=== PATIENT | female | born 1990 | race Caucasian/White ===

== ENCOUNTER 2018-08-16 18:17 | Outpatient (CLI) | payer MEDICAID | END 2018-08-16 22:30 | disposition home or self-care (01) | LOC: OBT 18:17 → L-D 18:19 → OBT 22:30 | DX: O24.410 Gestational diabetes mellitus in pregnancy, diet controlled (principal); Z3A.35 35 weeks gestation of pregnancy | CPT/HCPCS: 76815; 76818; 82962 ==

== ENCOUNTER 2018-09-13 17:43 | Inpatient (IN) | payer MEDICAID ==
[2018-09-13 18:46] LABS: ADD MAN DIFF? NO
[2018-09-13 18:50] LABS: BASOPHILS % 0.2 % (0.0-2.0); EOSINOPHILS # 0.2 10^3/ul (0.0-0.5); HEMATOCRIT 38.6 % (37.0-47.0); HEMOGLOBIN 13.3 g/dl (12.0-16.0); LYMPHOCYTES # 2.1 10^3/ul (0.8-2.9); LYMPHOCYTES % 18.2 % (15.0-51.0); MEAN CORPUSCULAR HGB CONC 34.5 g/dl (32.0-37.0); MEAN CORPUSCULAR VOLUME 86.9 fl (82.0-101.0); MEAN PLATELET VOLUME 10.9 fl (7.4-10.4); MONOCYTE # 1.1 10^3/ul (0.3-0.9); MONOCYTES % 9.7 % (0.0-11.0); NEUTROPHIL # 7.8 10^3/ul (1.6-7.5); NEUTROPHILS % 69.5 % (39.0-77.0); PLATELET COUNT 196 10^3/UL (140-415); RED BLOOD COUNT 4.44 10^6/ul (4.20-5.40); RED CELL DISTRIBUTION WIDTH 13.8 % (11.5-14.5)
[2018-09-13 18:50] LABS: WHITE BLOOD COUNT 11.3 10^3/ul (4.8-10.8)
[2018-09-13 19:01] LABS: ADD UMIC NO; UR ASCORBIC ACID NEGATIVE (NEGATIVE); UR BACTERIA FEW /HPF (NONE SEEN); UR BILIRUBIN (Dip) NEGATIVE (NEGATIVE); UR BLOOD (Dip) NEGATIVE (NEGATIVE); UR CLARITY SLIGHTLY CLOUDY (CLEAR); UR COLOR YELLOW (YELLOW); UR GLUCOSE (Dip) NEGATIVE (NEGATIVE); UR KETONES (Dip) TRACE mg/dL (NEGATIVE); UR LEUKOCYTE ESTERASE (Dip) NEGATIVE Leu/ul (NEGATIVE); UR MUCUS FEW /HPF (NONE SEEN); UR NITRITE (Dip) NEGATIVE (NEGATIVE); UR RBC 1 /HPF (0-5); UR SPECIFIC GRAVITY (Dip) 1.019 (1.003-1.030); UR SQUAMOUS EPITHELIAL CELL FEW /HPF (FEW); UR TOTAL PROTEIN (Dip) NEGATIVE (NEGATIVE); UR UROBILINOGEN (Dip) NEGATIVE (NEGATIVE); UR WBC 1 /HPF (0-5)
[2018-09-13 19:12] LABS: INR 0.89; PARTIAL THROMBOPLASTIN TIME 25.6 Sec (23.0-35.0); PROTIME 12.2 Sec (11.9-14.9)
[2018-09-13 19:13] LABS: ALANINE AMINOTRANSFERASE 12 IU/L (13-69); ALBUMIN 3.5 g/dl (3.3-4.9); ALKALINE PHOSPHATASE 181 IU/L (42-121); ANION GAP 11 (5-13); ASPARTATE AMINO TRANSFERASE 14 IU/L (15-46); BILIRUBIN,INDIRECT 0.1 mg/dl (0-1.1); BILIRUBIN,TOTAL 0.1 mg/dl (0.2-1.3); BLOOD UREA NITROGEN 6 mg/dl (7-20); CALCIUM 10.3 mg/dl (8.4-10.2); CARBON DIOXIDE 19 mmol/L (21-31); CHLORIDE 109 mmol/L (97-110); CREATININE 0.44 mg/dl (0.44-1.00); Estimated GFR > 60 mL/min (>60); GLUCOSE 115 mg/dl (70-220); POTASSIUM 3.8 mmol/L (3.5-5.1); SODIUM 139 mmol/L (135-144); URIC ACID 3.8 mg/dl (3.1-7.9)
[2018-09-13] MEDS ORDERED: CARBOPROST 250 MCG INJ IM (21:00)
[2018-09-13] MEDS ORDERED: IBUPROFEN 600 MG TAB PO (21:00)
[2018-09-13] MEDS ORDERED: BUTORPHANOL 2 MG INJ IV ×2 (21:00)
[2018-09-13] MEDS ORDERED: LIDOCAINE 1% (MPF) 30 ML INJ INJ (21:00)
[2018-09-13] MEDS ORDERED: METHYLERGONOVINE 0.2 MG INJ IM (21:00)
[2018-09-13] MEDS ORDERED: LACTATED RINGER'S 1,000 ML IV (21:00)
[2018-09-13] MEDS ORDERED: OXYTOCIN 30 UNITS/LR 500 ML IV ×3 (21:00)
[2018-09-13] MEDS: LACTATED RINGER'S 1,000 ML IV (21:43)
[2018-09-13 21:51] LABS: HEPATITIS B SURFACE ANTIGEN NEGATIVE (NEGATIVE)
[2018-09-14] MEDS: MAGNESIUM SULFATE 4 GM/100 ML 100 ML IVPB (00:15)
[2018-09-14] MEDS: MAGNESIUM SULFATE 20 GM/500 ML 500 ML IV ×4 (00:28→23:52)
[2018-09-14] MEDS: OXYTOCIN 30 UNITS/LR 500 ML IV ×2 (00:29→17:27)
[2018-09-14] MEDS: LACTATED RINGER'S 1,000 ML IV ×2 (04:10→09:07)
[2018-09-14 08:26] LABS: MAGNESIUM 4.7 mg/dl (1.7-2.5)
[2018-09-14] MEDS ORDERED: FENTAnyl 2MCG/ML-ROPIV 0.2% 100 ML (09:15)
[2018-09-14] MEDS: MISOPROSTOL 200 MCG TAB PR (11:28)
[2018-09-14] MEDS: LACTATED RINGER'S 1,000 ML IV* ×2 (11:43→19:43)
[2018-09-14] MEDS ORDERED: CA GLUCONATE (GM) 10% 10ML INJ IV (12:00)
[2018-09-14] MEDS ORDERED: METHYLERGONOVINE 0.2 MG INJ IM (12:00)
[2018-09-14] MEDS ORDERED: MISOPROSTOL 200 MCG TAB PR (12:00)
[2018-09-14] MEDS ORDERED: HYDROCODONE/APAP (5/325) TAB PO (12:00)
[2018-09-14] MEDS ORDERED: OXYTOCIN 30 UNITS/LR 500 ML IV (12:00)
[2018-09-14] MEDS ORDERED: CARBOPROST 250 MCG INJ IM (12:00)
[2018-09-14] MEDS ORDERED: NACL 0.9% 3 ML SYG IV (12:00)
[2018-09-14] MEDS ORDERED: FENTAnyl 2MCG/ML-ROPIV 0.2% 100 ML BAG EPI (13:30)
[2018-09-14] MEDS ORDERED: NALOXONE (0.4 MG/ML) INJ IV (13:30)
[2018-09-14 16:21] LABS: RAPID PLASMA REAGIN NONREACTIVE (NR)
[2018-09-14] MEDS: IBUPROFEN 600 MG TAB PO ×3 (17:26→23:53)
[2018-09-14 18:46] LABS: MAGNESIUM 4.4 mg/dl (1.7-2.5)
[2018-09-15 01:00] LABS: MAGNESIUM 4.8 mg/dl (1.7-2.5)
[2018-09-15] MEDS: LACTATED RINGER'S 1,000 ML IV* (03:43)
[2018-09-15] MEDS: OXYTOCIN 30 UNITS/LR 500 ML IV (03:46)
[2018-09-15] MEDS: IBUPROFEN 600 MG TAB PO ×4 (05:17→23:55)
[2018-09-15 06:54] LABS: ADD MAN DIFF? NO
[2018-09-15 07:00] LABS: WHITE BLOOD COUNT 12.6 10^3/ul (4.8-10.8)
[2018-09-15 07:00] LABS: ABNORMAL IP MESSAGE 1; BASOPHILS % 0.2 % (0.0-2.0); EOSINOPHILS # 0.2 10^3/ul (0.0-0.5); EOSINOPHILS % 1.4 % (0.0-7.0); HEMATOCRIT 35.3 % (37.0-47.0); HEMOGLOBIN 11.9 g/dl (12.0-16.0); LYMPHOCYTES # 2.5 10^3/ul (0.8-2.9); MEAN CORPUSCULAR HEMOGLOBIN 29.8 pg (29.0-33.0); MEAN CORPUSCULAR HGB CONC 33.7 g/dl (32.0-37.0); MEAN CORPUSCULAR VOLUME 88.3 fl (82.0-101.0); MEAN PLATELET VOLUME 10.8 fl (7.4-10.4); MONOCYTE # 1.6 10^3/ul (0.3-0.9); MONOCYTES % 12.8 % (0.0-11.0); NEUTROPHIL # 8.2 10^3/ul (1.6-7.5); NEUTROPHILS % 65.1 % (39.0-77.0); PLATELET COUNT 159 10^3/UL (140-415)
[2018-09-15 07:03] LABS: POSITIVE DIFF @See below
[2018-09-15 07:47] LABS: MAGNESIUM 5.4 mg/dl (1.7-2.5)
[2018-09-16] MEDS: IBUPROFEN 600 MG TAB PO ×2 (05:25→12:00)
[2018-09-16] MEDS: DIPHTH/TET/ACEL PERTUSS (ADULT) 0.5 ML VIAL IM* (09:00)
== END 2018-09-16 14:05 | disposition home or self-care (01) | DRG 807 ==
LOC: OBT 17:43 → PP1 09-14 15:02 → L-D 17:44 → OBT 20:50 → L-D 20:50
PROC: 10E0XZZ Delivery of Products of Conception, External Approach (ICD-10-PCS; principal; 2018-09-14)
DX: O13.4 Gestational [pregnancy-induced] hypertension without significant proteinuria, complicating childbirth (principal); O69.81X0 Labor and delivery complicated by cord around neck, without compression, not applicable or unspecified; Z3A.39 39 weeks gestation of pregnancy; Z37.0 Single live birth
CPT/HCPCS: 62322; 76815; 76818; 80053; 81001; 81003; 83735; 84560; 85025; 85610; 85730; 86592; 86850; 86900; 86901; 87340